=== PATIENT | female | born 1955 | race Caucasian/White ===

== ENCOUNTER 2017-10-12 09:59 | Outpatient (CLI) | payer OTHER | END 2017-10-12 10:06 | disposition home or self-care (01) | LOC: NUCLEAR 09:59 | DX: M81.0 Age-related osteoporosis without current pathological fracture (principal) ==

== ENCOUNTER 2020-01-09 11:26 | Outpatient (CLI) | payer OTHER | END 2020-01-09 11:31 | disposition home or self-care (01) | LOC: NUCLEAR 11:26 | PROVIDERS: ATTEND Internal Medicine | DX: M81.0 Age-related osteoporosis without current pathological fracture (principal) ==

== ENCOUNTER 2022-01-09 10:36 | Outpatient (CLI) | payer OTHER | END 2022-01-09 10:37 | disposition home or self-care (01) | LOC: NUCLEAR 10:36 | PROVIDERS: ATTEND Internal Medicine Rheumatology | DX: M81.0 Age-related osteoporosis without current pathological fracture (principal) ==

== ENCOUNTER → 2024-05-25 10:37 | Outpatient (CLI) | payer OTHER | END | disposition home or self-care (01) | LOC: NUCLEAR 10:37 | DX: M81.0 Age-related osteoporosis without current pathological fracture (principal) ==

== ENCOUNTER → 2024-06-14 | Outpatient (CLI) | payer OTHER | END | disposition home or self-care (01) | LOC: NUCLEAR 10:19 | PROVIDERS: ATTEND Internal Medicine | DX: M81.0 Age-related osteoporosis without current pathological fracture (principal) ==